=== PATIENT | female | born 1980 | race Caucasian/White ===

== ENCOUNTER 2016-08-11 16:06 | Emergency (ER) | payer OTHER ==
[2016-08-11 16:37] VITALS: BP 131/92; PULSE 96; RESP 18; TEMP 98.1
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
[2016-08-11] MEDS ORDERED: HYDROcodone/APAP 5-325MG 1 EACH TAB PO STA (17:03)
== END 2016-08-11 17:19 | disposition home or self-care (01) ==
LOC: EC 16:06
DX: G89.29 Other chronic pain (principal); M25.511 Pain in right shoulder; F17.200 Nicotine dependence, unspecified, uncomplicated; Z88.5 Allergy status to narcotic agent; Z88.6 Allergy status to analgesic agent
CPT/HCPCS: 99283

== ENCOUNTER → 2016-09-04 | Outpatient (CLI) | payer OTHER ==
--- NOTE | 2016-09-05 02:13 | MR ---
EXAMINATION TYPE: MR shoulder RT wo con DATE OF EXAM: 09/04/2016 10:31 PM COMPARISON: NONE HISTORY: PAIN IN RT SHOULDER TECHNIQUE: Multiplanar, multisequence imaging of the shoulder is performed without contrast. FINDINGS: There is narrowing of the glenohumeral joint space. There is thickening and irregular appearance of t he subscapularis tendon consistent with tear and retraction. There is a vertical defect in the supras pinatus tendon over the humeral head near the greater tuberosity. There is no retraction. There is no significant subacromial impingement. There is no fracture. There is no joint effusion. Anterior joel oid labrum is irregular. IMPRESSION: There is a full-thickness vertical tear of the supraspinatus tendon without retraction. There is wavy appearance of the subscapularis tendon with some thickening consistent with a tear. Mild osteoarthri tic narrowing of the glenohumeral joint space. Anterior glenoid labrum is irregular as well consisten t with degenerative phenomenon.
== END | disposition home or self-care (01) ==
LOC: RADMRIMAIN 21:38
PROVIDERS: ATTEND Internal Medicine
DX: M75.121 Complete rotator cuff tear or rupture of right shoulder, not specified as traumatic (principal); M19.011 Primary osteoarthritis, right shoulder

== ENCOUNTER 2016-09-05 15:35 | Emergency (ER) | payer OTHER ==
[2016-09-05 16:07] VITALS: BP 169/101; PULSE 90; RESP 20; TEMP 97.6
[2016-09-05] MEDS ORDERED: HYDROmorphone 1 MG/ML 1 ML SYRINGE IM STA (16:18)
[2016-09-05] MEDS ORDERED: KETOROLAC 60 MG/2 ML VIAL IM STA (16:27)
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
== END 2016-09-05 16:54 | disposition home or self-care (01) ==
LOC: EC 15:35
DX: M75.101 Unspecified rotator cuff tear or rupture of right shoulder, not specified as traumatic (principal); Z88.5 Allergy status to narcotic agent; F17.200 Nicotine dependence, unspecified, uncomplicated
CPT/HCPCS: 96372; 99283; J1885; J1170

== ENCOUNTER 2016-09-14 16:03 | Emergency (ER) | payer OTHER ==
[2016-09-14 16:08] VITALS: BP 146/56; PULSE 102; RESP 20; TEMP 97.9
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
== END 2016-09-14 16:39 | disposition home or self-care (01) ==
LOC: EC 16:03
DX: M75.101 Unspecified rotator cuff tear or rupture of right shoulder, not specified as traumatic (principal); F17.200 Nicotine dependence, unspecified, uncomplicated; Z88.5 Allergy status to narcotic agent; Z88.6 Allergy status to analgesic agent
CPT/HCPCS: 82075; 99284; 99285

== ENCOUNTER 2016-09-14 22:21 | Emergency (ER) | payer OTHER ==
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
[2016-09-14 23:11] VITALS: RESP 22
[2016-09-14] MEDS ORDERED: IBUPROFEN 600 MG TAB PO STA (23:45)
[2016-09-15 00:08] VITALS: BP 161/102; PULSE 98; TEMP 97
== END 2016-09-15 00:51 | disposition home or self-care (01) ==
LOC: EC 22:21
DX: Z76.5 Malingerer [conscious simulation] (principal); I10 Essential (primary) hypertension; F91.8 Other conduct disorders; Z78.1 Physical restraint status; F17.200 Nicotine dependence, unspecified, uncomplicated; Z88.5 Allergy status to narcotic agent
CPT/HCPCS: 82075; 99285

== ENCOUNTER 2016-09-18 18:50 | Emergency (ER) | payer OTHER ==
[2016-09-18 18:57] VITALS: BP 140/81; PULSE 85; RESP 18; TEMP 97.4
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
== END 2016-09-18 21:23 | disposition home or self-care (01) ==
LOC: EC 18:50
DX: G89.29 Other chronic pain (principal); S60.812A Abrasion of left wrist, initial encounter; S60.811A Abrasion of right wrist, initial encounter; Z88.5 Allergy status to narcotic agent; Z91.5 Personal history of self-harm; X78.9XXA Intentional self-harm by unspecified sharp object, initial encounter
CPT/HCPCS: 82075; 99284

== ENCOUNTER → 2022-06-25 | Outpatient (CLI) | payer OTHER ==
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
== END | disposition home or self-care (01) ==
LOC: RADMRIMAIN 14:06
PROVIDERS: ATTEND Nurse Practitioner Family
DX: G93.89 Other specified disorders of brain (principal); R47.89 Other speech disturbances; R29.6 Repeated falls; R41.3 Other amnesia
CPT/HCPCS: 70553; A9585